=== PATIENT | male | born 1985 | race Caucasian/White ===

== ENCOUNTER 2018-05-08 08:02 | Outpatient (CLI) | payer BC ==
--- NOTE | 2018-05-08 10:12 | ULT ---
RIGHT UPPER QUADRANT ULTRASOUND: Date: 05-08-18 History: Elevated liver function test. FINDINGS: There is a nonadherent echogenic nonmobile focus seen within the gallbladder lumen. Gallbladder is in completely distended as well. This echogenic focus measures approximately 5 mm. This is larger than e xpected for normal appearing gallbladder polyp. This could represent a gallbladder polyp or inherent focus of sludge. There is no gallbladder callus, gallbladder wall thickening, or pericholecystic flui d. The common duct measures 0.5 cm in diameter which is within normal limits. Liver demonstrates normal sonographic appearance without focal mass seen. The visualized portions of the pancreas, visualized portions of the IVC, and visualized right kidney demonstrate a normal sonographic appearance. IMPRESSION: 1. Nonmobile echogenic focus in the gallbladder lumen measuring approximately 5 mm. This may represen t either a prominent gallbladder polyp versus inherent sludge. Follow up evaluation in 6 weeks may be helpful for further evaluation. No gallbladder calculi are seen, and the common duct is normal in ca liber. 2. Normal sonographic appearance of the liver. POS: [facility]
== END 2018-05-08 08:03 | disposition home or self-care (01) ==
LOC: SCSULT 08:02
PROVIDERS: ATTEND Family Medicine
DX: R74.8 Abnormal levels of other serum enzymes (principal); R93.2 Abnormal findings on diagnostic imaging of liver and biliary tract
CPT/HCPCS: 76705